=== PATIENT | female | born 1965 | race Caucasian/White ===

== ENCOUNTER 2024-05-29 11:57 | Emergency (ER) | payer OTHER, SELFPAY ==
[2024-05-29 12:01] VITALS: BP 156/81; PULSE 89; O2SAT 95; BMI 57.5
--- NOTE | 2024-05-29 12:15 | ED_ITS ---
HPI - Female Genitourinary General Chief complaint: Urogenital-Female Stated complaint: URINARY PROBLEMS Time Seen by Provider: 05/29/24 12:02 Source: patient Mode of arrival: walk-in Limitations: no limitations History of Present Illness HPI Narrative: 58-year-old female presents to the emergency department for chief complaint of frequency and lower abdominal pressure. She believes she has a UTI, she has had them before. She is nauseous but no vomiting and she has not had a fever. Symptoms started 2 days ago. Related Data Previous Rx's ?Medication ?Instructions ?Recorded cephalexin 500 mg capsule 500 mg PO TID 7 days #21 caps 05/29/24 Allergies Allergy/AdvReac Type Severity Reaction Status Date / Time No Known Drug Allergies Allergy Verified 05/29/24 12:04 Review of Systems ROS Narrative A ten point review of systems is negative except as noted above. Exam Narrative Exam Narrative: Nurses note and vital signs reviewed and patient is not hypoxic. General: The patient appears well and in no apparent distress. Patient is resting comfortably on cart. Skin: Warm, dry, no pallor noted. There is no rash noted. Head: Normocephalic, atraumatic Eye: Normal conjunctiva, no drainage Ears, Nose, Mouth, and Throat: oral mucosa is moist. Nares patent. Cardiovascular: Regular Rate and Rhythm Respiratory: Patient is in no distress, no accessory muscle use, lungs are clear to auscultation, no wheezing, rales or rhonchi Back: non-tender GI: Obese soft and nontender Musculoskeletal: The patient has no evidence of calf tenderness, no pitting edema, symmetrical pulses noted bilaterally Neurological: A&O, normal speech Psychiatric: Cooperative Constitutional Vital Signs, click to edit/add: Last Vital Signs Pulse 89 05/29/24 12:01 Resp 20 05/29/24 12:01 BP 156/81 H 05/29/24 12:01 Pulse Ox 95 05/29/24 12:01 O2 Del Method Room Air 05/29/24 12:01 Course Vital Signs Vital signs: Vital Signs Pulse Rate 89 05/29/24 12:01 Respiratory Rate 20 05/29/24 12:01 Blood Pressure 156/81 H 05/29/24 12:01 Pulse Oximetry 95 05/29/24 12:01 Oxygen Delivery Method Room Air 05/29/24 12:01 Pulse Rate 89 05/29/24 12:01 Respiratory Rate 20 05/29/24 12:01 Blood Pressure 156/81 H 05/29/24 12:01 Pulse Oximetry 95 05/29/24 12:01 Oxygen Delivery Method Room Air 05/29/24 12:01 MDM - Female Genitourinary MDM Narrative Medical decision making narrative: UTI is identified. The patient was given her first dose of Keflex here and prescribed Keflex. Treatment diagnosis and follow-up were discussed with the patient. Differential Diagnosis Differential diagnosis: Likely urinary tract infection and cystitis Lab Data Attestation: I reviewed the patient's lab results. Labs: Lab Results 05/29/24 Range/Units 12:08 Urine Color Lt. yellow (YELLOW) Urine Clarity Sl cloudy (CLEAR) Urine pH 6.0 (5.0-9.0) Ur Specific [place] 1.025 (1.005-1.025) Urine Protein 30 A (NEG/TRACE) mg/dL Urine Glucose (UA) Negative (NEGATIVE) mg/dL Urine Ketones Negative (NEGATIVE) mg/dL Urine Occult Blood Moderate A (NEGATIVE) Urine Nitrite Negative (NEGATIVE) Urine Bilirubin Negative (NEGATIVE) Urine Urobilinogen 2.0 A (0.2-1.0) EU/dL Ur Leukocyte Esterase Moderate A (NEGATIVE) Urine RBC 10-20 A (0-2) #/HPF Urine WBC 20-50 A (NONE SEEN) #/HPF Ur Squamous Epith Cells Few A (NONE/RARE) #/LPF Urine Crystals None seen (None Seen) #/HPF Urine Bacteria Small A (NONE SEEN) #/HPF Urine Casts None seen (NONE SEEN) #/LPF Urine Mucus None seen (NONE SEEN) Ur Culture Indicated? Yes Discharge Plan Discharge Stand Alone Forms: Portal Instructions Chief Complaint: Urogenital-Female Clinical Impression: Urinary tract infection Patient Disposition: Home, Self-Care Time of Disposition Decision: 12:29 Condition: Good Mode of Transportation: Private Vehicle Prescriptions / Home Meds: New cephalexin 500 mg capsule 500 mg PO TID 7 Days Qty: 21 0RF Print Language: Tuvaluan Instructions: Urinary Tract Infection in Women (ED) Referrals: Physician,Non-Staff, MD [Primary Care Provider] - 1 week
[2024-05-29 12:19] LABS: Bilirubin Urine NEGATIVE (NEGATIVE); Blood Urine MODERATE (NEGATIVE); Clarity Urine SL CLOUDY (CLEAR); Color Urine LT. YELLOW (YELLOW); Glucose Urine UA NEGATIVE (NEGATIVE); Ketones Urine NEGATIVE (NEGATIVE); Leukocyte Esterase Urine MODERATE (NEGATIVE); Nitrite Urine NEGATIVE (NEGATIVE); Protein Urine 30 mg/dL (NEG/TRACE); Specific Gravity Urine 1.025 (1.005-1.025)
[2024-05-29 12:25] LABS: Bacteria Urine SMALL #/HPF (NONE SEEN); Cast Seen? NONE SEEN #/LPF (NONE SEEN); Crystals Seen? None Seen #/HPF (None Seen); Mucus Urine NONE SEEN (NONE SEEN); Squamous Epithelial Cell Urine FEW #/LPF (NONE/RARE); Urine Culture Indicated YES; WBC Urine 20-50 #/HPF (NONE SEEN)
[2024-05-29] MEDS: CEPHALEXIN 500 MG CAPSULE PO (12:32)
[2024-05-29 12:37] VITALS: BP 114/75; PULSE 73; O2SAT 98
== END 2024-05-29 12:40 | disposition home or self-care (01) ==
PROVIDERS: Emergency Provider Emergency Medicine
DX: N39.0 Urinary tract infection, site not specified (principal)
CPT/HCPCS: 81001; 87086; 87186; 99283